=== PATIENT | female | born 1965 ===

== ENCOUNTER 2025-08-17 11:45 | Inpatient (IN) | payer OTHER ==
[~2025-08-17] VITALS: Ht 61 cm; Wt 68.9 kg
[2025-08-17] MEDS ORDERED: METOTEXATE (13:43)
[2025-08-17] MEDS ORDERED: TRENTAL (13:44)
[2025-08-17] MEDS ORDERED: LIPITOR20 MG (13:44)
[2025-08-17] MEDS ORDERED: PAXIL40 MG PO (13:45)
[2025-08-17] MEDS ORDERED: MINIVELLE1 EAC1 TD (13:45)
[2025-08-17] MEDS ORDERED: FOLIC ACID0.8 M1 (13:45)
[2025-08-17] MEDS ORDERED: TRAZODONE HCL150 MG (13:46)
[2025-08-17] MEDS ORDERED: CLONAZEPAM0.5 M1 PO (13:46)
[2025-08-23] MEDS ORDERED: PERCOCET 5-3251 EACH PO (09:21)
[2025-08-23] MEDS ORDERED: MEDROLPACK PO (09:21)
[2025-08-23] MEDS ORDERED: COLACE100 MG PO (09:22)
[2025-08-23] MEDS ORDERED: AMOX-CLAV 875-1 EACH PO (09:22)
[2025-08-23] MEDS ORDERED: ZOFRAN8 MG PO (09:22)
[2025-08-23] MEDS ORDERED: NEURONTIN800 MG PO (09:23)
[2025-08-23] MEDS ORDERED: GABAPENTIN100 M2 PO (09:23)
[2025-08-23] MEDS ORDERED: PROMETHAZINE HCL 50 MG/ML AMPUL IM PRN (09:45)
[2025-08-23] MEDS ORDERED: 0.9 % SODIUM CHLORIDE 1,000 ML IV SCH (09:45)
[2025-08-23] MEDS ORDERED: ENALAPRILAT DIHYDRATE 1.25 MG/ML VIAL IV PRN (09:45)
[2025-08-23] MEDS ORDERED: DOCUSATE SODIUM 100MG CAP PO SCH (13:00)
[2025-08-23] MEDS ORDERED: CLONAZEPAM 0.5 MG TABLET PO SCH (13:00)
[2025-08-23] MEDS ORDERED: MORPHINE SULFATE 4 MG/ML CARTRIDGE IV SCH (13:00)
[2025-08-23 16:50] VITALS: BP 110/70; O2SAT 94
[2025-08-23 16:59] VITALS: O2SAT 93
[2025-08-23] MEDS ORDERED: METHYLPREDNISOLONE SOD SUCC 125 MG VIAL IV SCH (17:00)
[2025-08-23] MEDS ORDERED: CEFAZOLIN SODIUM 1,000 MG in 0.9 % SODIUM CHLORIDE 50 ML IV SCH (17:00)
[2025-08-23] MEDS ORDERED: ACETAMINOPHEN 500 MG GEL..CAP PO SCH (20:00)
[2025-08-23 20:50] VITALS: O2SAT 90
[2025-08-23] MEDS ORDERED: VANCOMYCIN HCL 1,000 MG VIAL IV SCH (21:00)
[2025-08-23] MEDS ORDERED: TRAZODONE HCL 50 MG TABLET PO SCH (21:00)
[2025-08-23] MEDS ORDERED: GABAPENTIN 800 MG TABLET PO SCH (21:00)
[2025-08-24] MEDS ORDERED: SODIUM CHLORIDE 0.45 % 1,000 ML IV SCH
[2025-08-24 01:16] VITALS: BP 103/61; O2SAT 96
[2025-08-24] MEDS ORDERED: OxyCODONE HCL 5 MG TABLET (ROXICODONE) PO SCH (06:01)
[2025-08-24 06:10] LABS: BASO % 0.1 % (0.1-1.2); EOS # 0.00 (0.04-0.54); EOS % 0.0 % (0.7-7.0); LYMPH # 0.24 (1.18-3.74); LYMPH % 1.7 % (19.3-53.1); MEAN PLATELET VOLUME 11.40 fl (9.4-12.4); MONO # 0.58 (0.24-0.82); MONO % 4.0 % (4.7-12.5); NEUT # 13.41 (1.56-6.13); NEUT % 93.6 % (34.0-71.1); RED CELL DISTRIBUTION WIDTH 13.3 % (11.6-14.4)
[2025-08-24 06:42] LABS: BUN CREA RATIO 15.0 (7.0-25.0); CREATININE SERUM 0.52 mg/dL (0.55-1.02); GFR 120.69; GLUCOSE FASTING 129.0 mg/dL (65-100); OSMOLALITY SERUM 285.0 MOSM/KG (275-295)
[2025-08-24 08:00] VITALS: BP 135/74; O2SAT 100
[2025-08-24] MEDS ORDERED: PAROXETINE HCL 20 MG TABLET PO SCH (09:00)
[2025-08-24] MEDS ORDERED: TAMSULOSIN HCL 0.4 MG CAP PO SCH (09:00)
[2025-08-24] MEDS ORDERED: ATORVASTATIN CALCIUM 10 MG TABLET PO SCH (09:00)
[2025-08-24 14:10] VITALS: O2SAT 99
[2025-08-24 16:16] VITALS: BP 130/78; O2SAT 98
[2025-08-24 16:55] VITALS: O2SAT 95
[2025-08-24] MEDS ORDERED: PENTOXIFYLLINE 400 MG TABLET.SA PO SCH (17:00)
[2025-08-24 20:47] VITALS: O2SAT 92
[2025-08-25 00:30] VITALS: BP 133/76; O2SAT 98
[2025-08-25 01:48] VITALS: O2SAT 90
[2025-08-25 05:24] VITALS: O2SAT 99
[2025-08-25] MEDS ORDERED: LOSARTAN POTASSIUM 50 MG TABLET PO SCH (09:00)
[2025-08-25 09:43] VITALS: BP 127/77; O2SAT 98
[2025-08-25 14:03] LABS: COVID-19 AG NEGATIVE (NEGATIVE)
[2025-08-25 16:16] VITALS: BP 136/73; O2SAT 99
== END 2025-08-25 18:43 | DRG 428 ==
LOC: O/R 08-23 08:11 → SURH 08-23 08:11
PROVIDERS: ADMIT Orthopaedic Surgery Orthopaedic Surgery of the Spine; ATTEND Orthopaedic Surgery Orthopaedic Surgery of the Spine
PROC: XRGC0R7 Fusion of 2 or more Lumbar Vertebral Joints using Custom-Made Anatomically Designed Interbody Fusion Device, Open Approach, New Technology Group 7 (ICD-10-PCS; 2025-08-23)
PROC: 0ST20ZZ Resection of Lumbar Vertebral Disc, Open Approach (ICD-10-PCS; 2025-08-23)
PROC: 07DR0ZZ Extraction of Iliac Bone Marrow, Open Approach (ICD-10-PCS; 2025-08-23)
PROC: 4A1104G Monitoring of Peripheral Nervous Electrical Activity, Intraoperative, Open Approach (ICD-10-PCS; 2025-08-23)
PROC: 4A12X4Z Monitoring of Cardiac Electrical Activity, External Approach (ICD-10-PCS; 2025-08-23)
PROC: 0SG1071 Fusion of 2 or more Lumbar Vertebral Joints with Autologous Tissue Substitute, Posterior Approach, Posterior Column, Open Approach (ICD-10-PCS; principal; 2025-08-23 11:30)
DX: M48.062 Spinal stenosis, lumbar region with neurogenic claudication (principal); M51.360 Other intervertebral disc degeneration, lumbar region with discogenic back pain only; M51.369 Other intervertebral disc degeneration, lumbar region without mention of lumbar back pain or lower extremity pain